=== PATIENT | female | born 1960 | race American Indian/Alaskan Native ===

== ENCOUNTER 2017-09-18 21:02 | Observation (INO) | payer BC ==
[2017-09-18] MEDS ORDERED: ASPIRIN PO ONE (23:40)
[2017-09-18 23:57] LABS: Basophils % (Auto) 0.1 % (0.0-1.8); Hematocrit 38.5 % (30.3-42.9); Hemoglobin 12.9 gm/dl (10.1-14.3); Lymphocytes # (Auto) 0.7 K/mm3 (1.2-5.4); Lymphocytes % (Auto) 5.1 % (13.4-35.0); Mean Corpuscular HGB Conc 33 % (30-34); Mean Corpuscular Hemoglobin 28 pg (28-32); Mean Corpuscular Volume 83 fl (79-97); Monocytes # (Auto) 0.8 K/mm3 (0.0-0.8); Monocytes % (Auto) 6.1 % (0.0-7.3); Platelet Count 263 K/mm3 (140-440); Red Blood Count 4.66 M/mm3 (3.65-5.03); Red Cell Distribution Width 14.3 % (13.2-15.2)
[2017-09-19 00:24] LABS: BUN/Creatinine Ratio 18; Blood Urea Nitrogen 11 mg/dL (7-17); Calcium 9.1 mg/dL (8.4-10.2); Hemolysis Index 11
--- NOTE | 2017-09-19 07:21 | XRay Report ---
FINAL REPORT EXAM: XR CHEST ROUTINE 2V HISTORY: chest pain TECHNIQUE: PA and lateral views of the chest were submitted. FINDINGS: The lungs are clear. The heart size is normal. Pleural fluid is not seen. The lungs are not congested. The skeletal structures are unremarkable. IMPRESSION: Within normal limits.
[2017-09-19] MEDS ORDERED: ZOFRAN IV ONE (11:44)
[2017-09-19] MEDS ORDERED: NACL 0.9% 1000 ML 1,000 ML IV ONE ×2 (11:44→17:27)
[2017-09-19] MEDS ORDERED: MORPHINE IV ONE (11:44)
--- NOTE | 2017-09-19 11:49 | Emergency Department Report ---
ED Abdominal Pain HPI - General Chief Complaint: Chest Pain Stated Complaint: CHEST PAIN,ABDOMINAL PAIN Time Seen by Provider: 09/19/17 11:37 Source: patient Mode of arrival: Ambulatory Limitations: No Limitations - History of Present Illness Initial Comments: Patient is 56 years old female with no significant past medical history. Patient presented to the ER with epigastric abdominal pain since last night associated with nausea vomiting and watery diarrhea. Patient denied any fever. Patient stated that she ate in a restaurant on Monday and she thinks that might be the reason for having the symptoms. Patient denied any chest pain, shortness of breath or cough. MD Complaint: abdominal pain -: Last night Location: epigastric Radiation: RUQ, suprapubic Migration to: no migration Severity scale (0 -10): 5 Quality: cramping, sharp Associated Symptoms: nausea, vomiting, diarrhea - Related Data Allergies Allergy/AdvReac Type Severity Reaction Status Date / Time No Known Allergies Allergy Verified 09/19/17 11:39 ED Review of Systems ROS: Stated complaint: CHEST PAIN,ABDOMINAL PAIN Other details as noted in HPI Comment: All other systems reviewed and negative Constitutional: denies: chills, fever Respiratory: denies: cough, orthopnea, shortness of breath, SOB with exertion, SOB at rest Cardiovascular: palpitations. denies: chest pain, dyspnea on exertion, orthopnea Gastrointestinal: abdominal pain, nausea, vomiting, diarrhea. denies: constipation, hematemesis, melena, hematochezia Genitourinary: denies: dysuria, frequency, hematuria Neurological: denies: headache, weakness, numbness, paresthesias ED Past Medical Hx - Past Medical History Previous Medical History?: Yes Hx Hypertension: Yes Additional medical history: melanoma removed R upper chest, 2013 - Surgical History Past Surgical History?: No Additional Surgical History: hysterectomy - Social History Smoking Status: Never Smoker Substance Use Type: Alcohol ED Physical Exam - General Limitations: No Limitations General appearance: alert, in no apparent distress - Head Head exam: Present: atraumatic, normocephalic - ENT ENT exam: Present: normal exam, normal orophraynx, mucous membranes dry - Neck Neck exam: Present: normal inspection, full ROM. Absent: tenderness, meningismus, lymphadenopathy, thyromegaly - Respiratory Respiratory exam: Present: normal lung sounds bilaterally. Absent: respiratory distress, wheezes, rales, rhonchi, stridor, chest wall tenderness, accessory muscle use, decreased breath sounds, prolonged expiratory - Cardiovascular Cardiovascular Exam: Present: tachycardia - GI/Abdominal GI/Abdominal exam: Present: soft, tenderness (epigastric), normal bowel sounds. Absent: distended, guarding, rebound, rigid, mass, bruit, pulsatile mass, hernia - Extremities Exam Extremities exam: Present: normal inspection, full ROM, normal capillary refill. Absent: tenderness, pedal edema, joint swelling, calf tenderness - Back Exam Back exam: Present: normal inspection. Absent: full ROM, tenderness, CVA tenderness (R), CVA tenderness (L), muscle spasm, paraspinal tenderness, vertebral tenderness - Neurological Exam Neurological exam: Present: alert, oriented X3, CN II-XII intact, normal gait - Skin Skin exam: Present: warm, intact, normal color ED Course Vital Signs 09/18/17 09/19/17 09/19/17 23:36 11:36 11:41 Temperature 97.8 F Pulse Rate 114 H 127 H 127 H Respiratory 18 25 H 32 H Rate Blood Pressure 166/105 Blood Pressure 147/87 [Left] O2 Sat by Pulse 100 100 Oximetry 09/19/17 09/19/17 09/19/17 12:00 13:30 14:00 Temperature Pulse Rate 107 H 116 H 110 H Respiratory 21 14 22 Rate Blood Pressure 139/83 147/87 132/87 Blood Pressure [Left] O2 Sat by Pulse 96 98 99 Oximetry 09/19/17 15:00 Temperature Pulse Rate 110 H Respiratory 19 Rate Blood Pressure 140/81 Blood Pressure [Left] O2 Sat by Pulse 97 Oximetry - Reevaluation(s) Reevaluation #1: 09/19/17 16:[address] Rivers, I informed her about the patient, she stated that she is coming to see the patient in the ER. ED Medical Decision Making - Lab Data Result diagrams: 09/18/17 23:45 09/18/17 23:45 Critical care attestation.: If time is entered above; I have spent that time in minutes in the direct care of this critically ill patient, excluding procedure time. ED Disposition Clinical Impression: Abdominal pain, Acute cholecystitis Disposition: OP ADMIT IP TO THIS HOSP Is pt being admited?: Yes Condition: Stable Referrals: PRIMARY CARE, [Primary Care Provider] - 3-5 Days
--- NOTE | 2017-09-19 12:34 | Cat Scan Report ---
CT ABDOMEN PELVIS WITH CONTRAST: HISTORY: abdominal pain. COMPARISON: none. TECHNIQUE: Helical CT in 1.25mm intervals following IV contrast. Sagittal and coronal reconstructions. FINDINGS: Lung bases: Normal. Liver: Normal. Biliary system: The gallbladder is dilated with diffuse wall thickening and moderate pericholecystic fluid. No obvious calcified gallstones on CT. The common bile duct and intrahepatic biliary ducts are within normal limits. Pancreas: Normal. Spleen: Normal. Kidneys/ureters/bladder: Normal. Adrenal glands: Normal. Aorta: Normal. Intestines: Normal. Appendix: Normal. Pelvic viscera: Hysterectomy changes are suspected. Adenopathy: None. Musculoskeletal: Normal. IMPRESSION: The gallbladder is dilated and inflamed concerning for acute cholecystitis. Please correlate with the clinical presentation of the patient and laboratory values.
[2017-09-19] MEDS: ZOSYN/NS 3.375GM/50ML 3.375 GM/50 ML BAG IV SCH (13:58)
--- NOTE | 2017-09-19 14:36 | Ultrasound Report ---
ULTRASOUND ABDOMEN LIMITED: TECHNIQUE: Transabdominal ultrasound with color Doppler interrogation. HISTORY: right upper quadrant abdominal pain. COMPARISON: none. FINDINGS: LIVER: The. BILIARY SYSTEM: The gallbladder is mildly distended with numerous gallstones and moderate sludge. Gallbladder wall thickness is slightly increased measuring 4 mm. Small pericholecystic fluid is noted on ultrasound and CT. The CBD measures 5 mm. PANCREAS: Normal. RIGHT KIDNEY: Slightly echogenic right kidney is consistent with mild medical renal disease. No focal renal lesion or hydronephrosis. PROXIMAL AORTA: Normal. ASCITES: Small ascites in Morison's pouch. IMPRESSION: Cholelithiasis. The gallbladder appears mildly dilated with wall thickening and surrounding fluid. Correlate for acute cholecystitis. HIDA scan could be obtained if needed.
[2017-09-19 17:26] LABS: Albumin 3.7 g/dL (3.9-5); Bilirubin,Direct 0.4 mg/dL (0-0.2)
[2017-09-19] MEDS ORDERED: MORPHINE IV PRN ×4 (17:49→23:03)
[2017-09-19] MEDS ORDERED: ZOFRAN IV PRN (17:49)
[2017-09-19] MEDS ORDERED: NARCAN 0.4 MG/1 ML IV PRN (17:49)
[2017-09-19] MEDS ORDERED: SODIUM CHLORIDE FLUSH SYRINGE 10 ML IV PRN (17:49)
[2017-09-19] MEDS ORDERED: NACL 0.9% 1000 ML 1,000 ML IV SCH (18:00)
--- NOTE | 2017-09-19 18:04 | History and Physical Report ---
History of Present Illness Date of examination: 09/19/17 Date of admission: 09/19/17 17:24 Chief complaint: abd pain History of present illness: 56 yo F with hx of HTN who presented to the ER with c/o 2 days of epigastric pain. The pain felt like indigestion but now is sharp. Pain radiates from the epigastrium to the right upper quadrant. The pain is constant and there are no alleviating factors. The patient states that she ate at a restaurant 2 days ago and early the next day started to experience this pain. She also had associated nonbilious, nonbloody emesis and continues to have nausea and poor appetite. She has not eaten since. She is also been having loose stools for the last day which is now resolved. She has never had pain like this in the past. She denies fevers, chills, chest pain, shortness of breath. Past History Past Medical History: hypertension Past Surgical History: Other (hysterectomy, melanoma excision of right upper chest) Social history: denies: smoking, alcohol abuse Family history: no significant family history Medications and Allergies Allergies Allergy/AdvReac Type Severity Reaction Status Date / Time No Known Allergies Allergy Verified 09/19/17 11:39 Home Medications Medication Instructions Recorded Confirmed Last Taken Type Acetaminophen [Tylenol Extra 1,000 mg PO QDAY 09/19/17 09/19/17 Unknown History Strength] Active Meds: Active Medications Acetaminophen (Tylenol) 650 mg PO Q4H PRN PRN Reason: Pain MILD(1-3)/Fever >100.5/NICHOLAS Heparin Sodium (Porcine) (Heparin) 5,000 unit SUB-Q Q8HR ANNEMARIE Piperacillin Sod/Tazobactam Sod (Zosyn/Ns 3.375gm/50ml) 3.375 gm in 50 mls @ 100 mls/hr IV Q6HR ANNEMARIE Last Admin: 09/19/17 13:58 Dose: 100 mls/hr Sodium Chloride (Nacl 0.9% 1000 Ml) 1,000 mls @ 125 mls/hr IV ONCE ONE Stop: 09/20/17 01:26 Sodium Chloride (Nacl 0.9% 1000 Ml) 1,000 mls @ 125 mls/hr IV DIRECT ANNEMARIE Morphine Sulfate (Morphine) 2 mg IV Q4H PRN PRN Reason: Pain , MODERATE 4-6 Naloxone HCl (Narcan 0.4 Mg/1 Ml) 0.1 mg IV Q2MIN PRN PRN Reason: Res Rate </= 8 or 02 SAT < 92% Ondansetron HCl (Zofran) 4 mg IV Q8H PRN PRN Reason: Nausea And Vomiting Sodium Chloride (Sodium Chloride Flush Syringe 10 Ml) 10 ml IV PRN PRN PRN Reason: LINE FLUSH Review of Systems All systems: negative (10 point review of systems was performed and negative except for that listed in HPI) Exam Vital Signs Temp Pulse Resp BP Pulse Ox 97.8 F 114 H 18 166/105 100 09/18/17 23:36 09/18/17 23:36 09/18/17 23:36 09/18/17 23:36 09/18/17 23:36 Narrative exam: Gen.: Awake, alert, oriented 3. No apparent distress ENT: No scleral icterus or conjunctival pallor CV: S1, S2 present respiratory: No audible wheezes Abdomen: Soft, nondistended, right upper quadrant and epigastric tenderness to palpation. Positive McBurney sign. Extremities: No clubbing, cyanosis, edema Results - Labs 09/18/17 23:45 09/18/17 23:45 Abnormal lab results 09/18/17 09/18/17 09/19/17 Range/Units 23:45 23:45 16:28 WBC 12.7 H (4.5-11.0) K/mm3 Lymph % (Auto) 5.1 L (13.4-35.0) % Lymph # 0.7 L (1.2-5.4) K/mm3 Seg Neutrophils % 88.7 H (40.0-70.0) % Seg Neutrophils # 11.3 H (1.8-7.7) K/mm3 Chloride 96.3 L (98-107) mmol/L Creatinine 0.6 L (0.7-1.2) mg/dL Glucose 164 H (65-100) mg/dL Total Bilirubin 1.50 H (0.1-1.2) mg/dL Direct Bilirubin 0.4 H (0-0.2) mg/dL Albumin 3.7 L (3.9-5) g/dL Diabetes panel 09/18/17 09/19/17 Range/Units 23:45 16:28 Sodium 138 (137-145) mmol/L Potassium 3.7 (3.6-5.0) mmol/L Chloride 96.3 L (98-107) mmol/L Carbon Dioxide 28 (22-30) mmol/L BUN 11 (7-17) mg/dL Creatinine 0.6 L (0.7-1.2) mg/dL Glucose 164 H (65-100) mg/dL Calcium 9.1 (8.4-10.2) mg/dL AST 35 (5-40) units/L ALT 22 (7-56) units/L Alkaline Phosphatase 72 (35-129) units/L Total Protein 7.3 (6.3-8.2) g/dL Albumin 3.7 L (3.9-5) g/dL Calcium panel 09/18/17 09/19/17 Range/Units 23:45 16:28 Calcium 9.1 (8.4-10.2) mg/dL Albumin 3.7 L (3.9-5) g/dL Pituitary panel 09/18/17 Range/Units 23:45 Sodium 138 (137-145) mmol/L Potassium 3.7 (3.6-5.0) mmol/L Chloride 96.3 L (98-107) mmol/L Carbon Dioxide 28 (22-30) mmol/L BUN 11 (7-17) mg/dL Creatinine 0.6 L (0.7-1.2) mg/dL Glucose 164 H (65-100) mg/dL Calcium 9.1 (8.4-10.2) mg/dL Adrenal panel 09/18/17 09/19/17 Range/Units 23:45 16:28 Sodium 138 (137-145) mmol/L Potassium 3.7 (3.6-5.0) mmol/L Chloride 96.3 L (98-107) mmol/L Carbon Dioxide 28 (22-30) mmol/L BUN 11 (7-17) mg/dL Creatinine 0.6 L (0.7-1.2) mg/dL Glucose 164 H (65-100) mg/dL Calcium 9.1 (8.4-10.2) mg/dL Total Bilirubin 1.50 H (0.1-1.2) mg/dL AST 35 (5-40) units/L ALT 22 (7-56) units/L Alkaline Phosphatase 72 (35-129) units/L Total Protein 7.3 (6.3-8.2) g/dL Albumin 3.7 L (3.9-5) g/dL - Imaging CT scan - abdomen: report reviewed, image reviewed CT scan - pelvis: report reviewed, image reviewed US - abdomen: report reviewed, image reviewed Assessment and Plan 56-year-old female with acute cholecystitis Plan: Admit to med/surg floor 1. NPO 2. IVF 3. IVF abx - on zosyn 4. DVT ppx 5. pain and nausea control PRN 6. need OR for laparoscopic cholecystectomy, possible open - all risks, alternatives, and benefits of surgery discussed with patient. She understands and agrees to proceed.
[2017-09-19] MEDS ORDERED: DIPRIVAN 10 MG/ML IV ONE (18:29)
[2017-09-19] MEDS ORDERED: DILAUDID ONE (18:29)
[2017-09-19] MEDS ORDERED: ZEMURON IV ONE ×2 (18:30→21:08)
[2017-09-19] MEDS ORDERED: QUELICIN ONE (18:30)
[2017-09-19] MEDS ORDERED: MARCAINE 0.5% INFILTRATI ONE ×2 (19:05→19:37)
--- NOTE | 2017-09-19 19:05 | Anesthesia Consultation ---
Anesthesia Consult and Med Hx Date of service: 09/19/17 - Airway Anesthetic Teeth Evaluation: Good ROM Head & Neck: Adequate Mental/Hyoid Distance: Adequate Mallampati Class: Class I Intubation Access Assessment: Good - Pulmonary Exam CTA: Yes - Cardiac Exam Cardiac Exam: RRR - Pre-Operative Health Status ASA Pre-Surgery Classification: ASA1, Emergency Proposed Anesthetic Plan: General - Cardiovascular System Hx Hypertension: No
[2017-09-19] MEDS ORDERED: XYLOCAINE 1% MPF 5 mL ONE (19:06)
--- NOTE | 2017-09-19 19:06 | Anesthesia Day of Surgery ---
Anesthesia Day of Surgery - Day of Surgery Patient Examined: Yes Patient H&P Reviewed: Yes Patient is NPO: Yes Beta Blockers: No
[2017-09-19] MEDS ORDERED: XYLOCAINE MPF 2% ONE (19:18)
[2017-09-19] MEDS ORDERED: NEO SYNEPHRINE/NS Syringe(OR USE) IV ONE (19:42)
[2017-09-19] MEDS ORDERED: NACL 0.9% 1000 ML 1,000 ML ONE ×5 (19:50→23:59)
[2017-09-19] MEDS ORDERED: NEOSTIGMINE ONE (20:00)
[2017-09-19] MEDS ORDERED: ROBINUL ONE (22:01)
[2017-09-19] MEDS ORDERED: ZOFRAN ONE (22:13)
[2017-09-19] MEDS: HEPARIN SUB-Q SCH (22:20)
--- NOTE | 2017-09-19 22:46 | Operative Report ---
Operative Report Operative Report: Date of operation: 09/19/2017 Preoperative diagnosis: Acute calculus cholecystitis postOperative diagnoses: Acute on chronic calculus cholecystitis Procedure performed: Laparoscopic cholecystectomy, lysis of adhesions Surgeon: Mauro Rivers DO Fence Erector Supervisor: Dr. Shah Anesthesia: Gen. endotracheal anesthesia Findings: 1. Very distended gallbladder with chronically thickened wall 2. hydrops of the gallbladder 3. thick adhesions from the omentum, colon, small bowel to the gallbladder Specimen: Gallbladder Estimated blood loss: 300cc Drains: 19F Bryon drain Complications: None Disposition: Stable to PACU HPI an indication: 56-year-old female who presented to the hospital with complaints of severe epigastric abdominal pain radiating to right upper quadrant. She was found to have acute cholecystitis on imaging which included CT scan and right upper quadrant ultrasound. Her white blood cell count was elevated. All risks and benefits as well as alternatives to cholecystectomy were discussed with the patient. The patient was agreeable to proceeding with laparoscopic,possible open, cholecystectomy. All questions were answered and consent signed. Procedure in detail: The patient was identified in the preoperative area and taken back to the operating room, placed on the operating room table in supine position. After anesthesia was induced, the abdomen was prepped and draped in usual sterile fashion and timeout was performed. Local anesthetic was infiltrated into all of the skin incision sites. Using an 11 blade a supraumbilical incision was made and through this a Veress needle was used to insufflate the abdomen. The position of the veress needle was confirmed with the saline drop test and the abdomen was then insufflated to 15 mmHg. The veress needle was then removed and a 5 mm trocar placed using Optiview trocar. The abdomen was then inspected and there was no underlying injury to any of the abdominal contents. An additional 12 mm subxyphoid port, and 2, 5mm RUQ ports were then placed under direct visualization. The patient was then placed into reverse Trendelberg and tilted to the left. The gallbladder was obscured by thick adhesions from the omentum and bowel to the gallbladder. These were taken down with great care using blunt dissection until the gallbladder was visualized. The gallbladder was very distended with a thickened gallbladder wall and was unable to be grasped. Using a laparoscopic needle, the gallbladder was decompressed. There was return of clear bile with a mixture of pus, a total of 160cc were aspirated. Once the gallbladder was adequately decompressed, it was grasped and lifted cephalad. The entire gallbladder was obscured by the previously mentioned adhesions which were slowly taken down bluntly until the neck of the gallbladder could be identified. This lysis of adhesions took greater than 1 hour until the neck of the gallbladder could safely be identified and dissected. In addition to this, the gallbladder was partially intrahepatic. The cystic duct and artery were then carefully dissected and the critical view obtained, and the cystic duct and artery were the only two structures seen entering the gallbladder. Three clips were then placed on the proximal aspect of the cystic duct and one clip distally and it was transected between the clips. The cystic artery was ligated using the Harmonic scalpel. The gallbladder was taken off the liver bed using Harmonic scalpel. The liver bed was very friable and we did encounter oozing of blood from the majority of the gallbladder fossa. This was adequately controlled with surgicel and electrocautery. The gallbladder was placed into a Endo Catch bag and removed from the abdomen via the 12mm port. The gallbladder fossa was then inspected and there was no identifiable bleeding or bile leakage. The patient was then placed into neutral position and Morison's pouch was irrigated and the irrigant returned clear. 2 pieces of Surgicel were left in the gallbladder fossa and once hemostasis was ensured, Ernesto powder was sprayed onto the gallbladder fossa. The clips on the cystic duct were visualized and intact. A 19 Wallisian Bryon drain was placed into the gallbladder fossa and brought out via the right upper quadrant lateral port. This was sutured into place using 2- 0 nylon drain stitch. The 12 mm port fascia was closed with a running 0 Vicryl suture. The remaining ports were removed under direct visualization. The subxiphoid and umbilical skin incisions were closed with 4-0 Monocryl subcuticular stitches and skin glue. The right upper quadrant medial port was closed using 3 simple interrupted 4-0 Monocryl stitches. 4 x 4 gauze was placed around the drain and over the right upper quadrant medial port, secured with Tegaderm. At the end case all sponge, instrument, sharp counts were correct 2. The patient was awoken from anesthesia, extubated, taken to PACU in stable condition.
[2017-09-19] MEDS ORDERED: MORPHINE ONE (22:49)
--- NOTE | 2017-09-19 23:07 | Post Anesthesia Evaluation ---
- Post Anesthesia Evaluation Patient Participated: Yes Airway Patent: Yes Stable Respiratory Function: Yes Nausea/Vomiting: No Temp > 96.8F: Yes Pain Manageable: Yes Adequeate Hydration: Yes Anesthesia Complications: No
[2017-09-19] MEDS ORDERED: TORADOL ONE (23:09)
[2017-09-19] MEDS ORDERED: TORADOL IV PRN (23:12)
[2017-09-20] MEDS: ZOSYN/NS 3.375GM/50ML 3.375 GM/50 ML BAG IV SCH ×3 (04:36→08:11)
[2017-09-20 06:46] LABS: Mean Corpuscular HGB Conc 32 % (30-34); Mean Corpuscular Hemoglobin 27 pg (28-32); Mean Corpuscular Volume 84 fl (79-97); Platelet Count 188 K/mm3 (140-440); Red Blood Count 3.67 M/mm3 (3.65-5.03); Red Cell Distribution Width 14.2 % (13.2-15.2)
[2017-09-20 06:59] LABS: BUN/Creatinine Ratio 16; Blood Urea Nitrogen 11 mg/dL (7-17); Calcium 7.3 mg/dL (8.4-10.2); Hemolysis Index 1
[2017-09-20] MEDS: MORPHINE IV PRN (07:02)
[2017-09-20] MEDS: HEPARIN SUB-Q SCH ×3 (07:03→22:10)
[2017-09-20] MEDS ORDERED: ZOSYN/NS 3.375GM/50ML 3.375 GM/50 ML BAG IV SCH (09:00)
[2017-09-20] MEDS ORDERED: D5W/0.45% NACL/KCL 20 MEQ 20 MEQ/1,000 ML BAG IV SCH (09:00)
[2017-09-20] MEDS ORDERED: ULTRAM PO PRN (09:58)
--- NOTE | 2017-09-20 10:00 | Progress Note ---
Assessment and Plan 56 yo F with acute on chronic cholecystitis s/p laparoscopic cholecystectomy POD 1 1. adv to soft diet 2. change to maintenance IVF and dc when pt tolerating reg diet 3. dc abx 4. ANUSHKA drain to bulb suction 5. DVT ppx 6. OOB/ambulate 7. encouraged IS 8. PRN PO pain meds 9. replace K 10. DC planning in am tomorrow Subjective Date of service: 09/20/17 Narrative: Pt seen and examined. No complaints. Pain is controlled. No n/v, f/c. No SOB, CP. Tolerating clear liquids. Ambulating to and from bathroom. Objective Vital Signs - 12hr 09/19/17 09/19/17 09/19/17 22:26 22:30 22:35 Temperature 98.5 F Pulse Rate 112 H 110 H 104 H Respiratory 16 17 18 Rate Blood Pressure 120/73 118/68 112/69 Blood Pressure [Left] O2 Sat by Pulse 100 100 100 Oximetry 09/19/17 09/19/17 09/19/17 22:40 22:43 22:45 Temperature Pulse Rate 113 H 107 H Respiratory 14 16 16 Rate Blood Pressure 118/74 121/74 Blood Pressure [Left] O2 Sat by Pulse 100 100 Oximetry 09/19/17 09/19/17 09/19/17 23:00 23:05 23:08 Temperature Pulse Rate 105 H Respiratory 12 14 14 Rate Blood Pressure 109/68 Blood Pressure [Left] O2 Sat by Pulse 100 Oximetry 09/19/17 09/19/17 09/19/17 23:15 23:30 23:38 Temperature Pulse Rate 96 H 102 H Respiratory 12 12 12 Rate Blood Pressure 100/60 91/56 Blood Pressure [Left] O2 Sat by Pulse 97 97 Oximetry 09/19/17 09/20/17 09/20/17 23:45 00:00 01:39 Temperature 97.7 F 97.8 F Pulse Rate 92 H 92 H 90 Respiratory 10 L 12 20 Rate Blood Pressure 101/60 114/85 Blood Pressure 93/60 [Left] O2 Sat by Pulse 99 98 Oximetry 09/20/17 09/20/17 04:54 08:03 Temperature 98.3 F 98.6 F Pulse Rate 83 88 Respiratory 14 18 Rate Blood Pressure 83/55 100/67 Blood Pressure [Left] O2 Sat by Pulse 100 100 Oximetry - General physical appearance Narrative Exam: Gen: AAOx3. NAD ENT: no scleral icterus or conjunctival pallor CV: s1, S2+ Resp: even and unlabored Abd: soft, NT, ND. incisions c/d/i. ANUSHKA drain sanguenous. Ext: no c/c/e ANUSHKA: 55 cc/12hr - Labs 09/20/17 05:59 09/20/17 05:59 Diabetes panel 09/19/17 09/20/17 Range/Units 16:28 05:59 Sodium 140 (137-145) mmol/L Potassium 3.4 L (3.6-5.0) mmol/L Chloride 107.0 (98-107) mmol/L Carbon Dioxide 25 (22-30) mmol/L BUN 11 (7-17) mg/dL Creatinine 0.7 (0.7-1.2) mg/dL Glucose 112 H (65-100) mg/dL Calcium 7.3 L D (8.4-10.2) mg/dL AST 35 (5-40) units/L ALT 22 (7-56) units/L Alkaline Phosphatase 72 (35-129) units/L Total Protein 7.3 (6.3-8.2) g/dL Albumin 3.7 L (3.9-5) g/dL Calcium panel 09/19/17 09/20/17 Range/Units 16:28 05:59 Calcium 7.3 L D (8.4-10.2) mg/dL Albumin 3.7 L (3.9-5) g/dL Pituitary panel 09/20/17 Range/Units 05:59 Sodium 140 (137-145) mmol/L Potassium 3.4 L (3.6-5.0) mmol/L Chloride 107.0 (98-107) mmol/L Carbon Dioxide 25 (22-30) mmol/L BUN 11 (7-17) mg/dL Creatinine 0.7 (0.7-1.2) mg/dL Glucose 112 H (65-100) mg/dL Calcium 7.3 L D (8.4-10.2) mg/dL Adrenal panel 09/19/17 09/20/17 Range/Units 16:28 05:59 Sodium 140 (137-145) mmol/L Potassium 3.4 L (3.6-5.0) mmol/L Chloride 107.0 (98-107) mmol/L Carbon Dioxide 25 (22-30) mmol/L BUN 11 (7-17) mg/dL Creatinine 0.7 (0.7-1.2) mg/dL Glucose 112 H (65-100) mg/dL Calcium 7.3 L D (8.4-10.2) mg/dL Total Bilirubin 1.50 H (0.1-1.2) mg/dL AST 35 (5-40) units/L ALT 22 (7-56) units/L Alkaline Phosphatase 72 (35-129) units/L Total Protein 7.3 (6.3-8.2) g/dL Albumin 3.7 L (3.9-5) g/dL
[2017-09-20] MEDS ORDERED: K-DUR PO ONE (10:30)
[2017-09-20] MEDS: TYLENOL PO PRN ×2 (17:40→22:10)
[2017-09-21] MEDS: TYLENOL PO PRN (05:34)
[2017-09-21] MEDS: HEPARIN SUB-Q SCH ×2 (05:45→17:04)
[2017-09-21 06:08] LABS: Hematocrit 31.4 % (30.3-42.9); Hemoglobin 10.5 gm/dl (10.1-14.3); Mean Corpuscular HGB Conc 33 % (30-34); Mean Corpuscular Hemoglobin 27 pg (28-32); Mean Corpuscular Volume 82 fl (79-97); Platelet Count 185 K/mm3 (140-440); Red Blood Count 3.81 M/mm3 (3.65-5.03); Red Cell Distribution Width 14.1 % (13.2-15.2)
[2017-09-21 06:31] LABS: BUN/Creatinine Ratio 12; Blood Urea Nitrogen 7 mg/dL (7-17); Calcium 7.9 mg/dL (8.4-10.2); Hemolysis Index 3
[2017-09-21] MEDS ORDERED: K-DUR PO NR (09:00)
[2017-09-21] MEDS: MORPHINE IV PRN ×2 (10:47→10:58)
--- NOTE | 2017-09-21 11:01 | Discharge Summary ---
Providers - Providers Date of Admission: 09/19/17 17:24 Date of discharge: 09/21/17 Attending physician: YARON TERRY DO Primary care physician: EDUCATION REPORTER Hospitalization Reason for admission: acute cholecystitis Condition: Good Pertinent studies: Ct A/P RUQ u/s Procedures: Laparoscopic cholecystectomy Hospital course: 56 yo F presented to hospital with c/o 2 days of RUQ abd pain and was found to have leukocytosis and acute cholecystitis on imaging. She was taken to the OR for laparoscopic cholecystectomy. Her post operative course was uncomplicated. She was advanced to a soft diet and was tolerating. Her pain was controlled with PO pain meds and she was ambulating. She was discharged to home in stable condition. KOBY drain was removed prior to discharge. Disposition: DC-01 TO HOME OR SELFCARE Time spent for discharge: 30 minutes - Discharge Diagnoses (1) Acute cholecystitis Status: Acute Core Measure Documentation - Palliative Care Palliative Care/ Comfort Measures: Not Applicable - Core Measures Any of the following diagnoses?: none Exam - Physical Exam Narrative exam: Gen: AAOx3. NAD ENT: no scleral icterus or conjunctival pallor CV: s1, S2+ Resp: No audible wheezes Abd: soft. ND, + TTP near R KOBY site. Koby drain serous - suture cut and KOBY drain removed intact. 2x2 gauze placed over incision and covered with tegaderm Ext: No c/c/e KOBY: 110cc/24 hours serous - Constitutional Vitals: Temp Pulse Resp BP Pulse Ox 99.3 F 97 H 20 136/84 94 09/21/17 08:01 09/21/17 08:01 09/21/17 08:01 09/21/17 08:01 09/21/17 08:01 Plan Activity: other (Avoid heavy lifting for [address] if taking narcotic pain medications) Diet: low fat, advance as tolerated, other (keep hydrated) Wound: open to air (May shower, do not submerge incisions in water until healed. Pat incisions dry, do not scrub. ) Additional Instructions: Call surgeon's office if you have fevers>100.4, intractable vomiting or abdominal pain not controlled with prescription pain medications, or drainage/redness around incisions. Follow up with: PRIMARY CAREMD [Primary Care Provider] - 3-5 Days MARA,YARON, DO [Staff Physician] - 10 Days Prescriptions: Ondansetron [Zofran Odt] 4 mg PO Q6H PRN #20 tab.rapdis PRN Reason: Nausea And Vomiting oxyCODONE /ACETAMINOPHEN [Percocet 5/325] 1 tab PO Q6HR PRN #20 tablet PRN Reason: Pain
[2017-09-21] MEDS ORDERED: PERCOCET 5/325 PO PRN (14:47)
[2017-09-21] MEDS: MOTRIN PO SCH ×2 (14:55→18:50)
[2017-09-21 17:35] VITALS: BP 133/81
== END 2017-09-21 19:30 | disposition home or self-care (01) ==
LOC: ED 21:02 → 3A 09-19 17:24 → INTOOBSV 09-19 17:24
PROVIDERS: ADMIT Surgery; ATTEND Surgery
DX: K80.12 Calculus of gallbladder with acute and chronic cholecystitis without obstruction (principal); I10 Essential (primary) hypertension
CPT/HCPCS: 36415; 47562; 71046; 74177; 76705; 80048; 80074; 84484; 85025; 85027; 86850; 86900; 86901; 88304; 93005; 93010; 96365; 96372; 96375; 96376; 99285; G0378; J1170; J1644; J1885; J2270; J2370; J2405; J2543; J2704; J2710; J7030; Q9967; 96361; J0330

== ENCOUNTER 2017-10-04 12:21 | Observation (INO) | payer BC ==
[2017-10-04 14:08] LABS: Basophils % (Auto) 0.2 % (0.0-1.8); Eosinophils % (Auto) 0.3 % (0.0-4.3); Hematocrit 31.3 % (30.3-42.9); Hemoglobin 10.2 gm/dl (10.1-14.3); Lymphocytes # (Auto) 1.5 K/mm3 (1.2-5.4); Lymphocytes % (Auto) 13.6 % (13.4-35.0); Mean Corpuscular HGB Conc 33 % (30-34); Mean Corpuscular Hemoglobin 26 pg (28-32); Mean Corpuscular Volume 81 fl (79-97); Monocytes # (Auto) 0.8 K/mm3 (0.0-0.8); Monocytes % (Auto) 7.2 % (0.0-7.3); Platelet Count 726 K/mm3 (140-440); Red Blood Count 3.88 M/mm3 (3.65-5.03); Red Cell Distribution Width 14.6 % (13.2-15.2)
[2017-10-04 14:23] LABS: Alanine Aminotransferase 28 units/L (7-56); Albumin 3.3 g/dL (3.9-5); BUN/Creatinine Ratio 10; Blood Urea Nitrogen 7 mg/dL (7-17); Hemolysis Index 3
[2017-10-04] MEDS ORDERED: TYLENOL PO PRN (17:08)
[2017-10-04] MEDS ORDERED: ZOFRAN IV PRN (17:08)
[2017-10-04] MEDS ORDERED: SODIUM CHLORIDE FLUSH SYRINGE 10 ML IV PRN (17:08)
--- NOTE | 2017-10-04 17:14 | History and Physical Report ---
History of Present Illness Date of examination: 10/04/17 Date of admission: 10/04/17 17:04 Chief complaint: fever, abd pain post op History of present illness: 56 yo F s/p laparoscopic cholecystectomy on 09/19/17 who was seen in the surgery office yesterday for post op follow up. The patient was not feeling well and reported low grade fevers and was started on levaquin and flagyl. On follow up today she stated she had two fevers of 100.7 and 100.4 since the visit yesterday. She denies n/v. She was tolerating a diet and her appetite has been improving. She had incisional abdominal pain. No constipation or diarrhea. Past History Past Medical History: No medical history Past Surgical History: cholecystectomy (09/19/17) Social history: no significant social history Family history: no significant family history Medications and Allergies Allergies Allergy/AdvReac Type Severity Reaction Status Date / Time No Known Allergies Allergy Verified 09/19/17 11:39 Home Medications Medication Instructions Recorded Confirmed Last Taken Type Ondansetron [Zofran Odt] 4 mg PO Q6H PRN #20 tab.rapdis 09/21/17 Unknown Rx oxyCODONE /ACETAMINOPHEN [Percocet 1 tab PO Q6HR PRN #20 tablet 09/21/17 Unknown Rx 5/325] Active Meds: Active Medications Acetaminophen (Tylenol) 650 mg PO Q4H PRN PRN Reason: Pain MILD(1-3)/Fever >100.5/NICHOLAS Dextrose/Sodium Chloride (D5/0.45ns) 1,000 mls @ 75 mls/hr IV DIRECT ANNEMARIE Levofloxacin/Dextrose (Levaquin 500mg/100ml) 500 mg in 100 mls @ 100 mls/hr IV Q24HR ANNEMARIE; Protocol Metronidazole (Flagyl 500 Mg/100 Ml) 500 mg in 100 mls @ 100 mls/hr IV Q8HR ANNEMARIE Ondansetron HCl (Zofran) 4 mg IV Q8H PRN PRN Reason: Nausea And Vomiting Sodium Chloride (Sodium Chloride Flush Syringe 10 Ml) 10 ml IV BID ANNEMARIE Sodium Chloride (Sodium Chloride Flush Syringe 10 Ml) 10 ml IV PRN PRN PRN Reason: LINE FLUSH Review of Systems All systems: negative (10 point ROS performed and negative except for above) Exam Narrative exam: Gen: AAOx3. NAD ENT: no scleral icterus or conjunctival pallor CV: s1, S2+ Resp: No audible wheezes Abd: soft, ND, mild RUQ and incisional TTP Ext: no c/c/e Results - Labs 10/04/17 14:04 10/04/17 14:04 Abnormal lab results 10/04/17 10/04/17 Range/Units 14:04 14:04 MCH 26 L (28-32) pg Plt Count 726 H (140-440) K/mm3 Seg Neutrophils % 78.7 H (40.0-70.0) % Seg Neutrophils # 8.5 H (1.8-7.7) K/mm3 Sodium 135 L (137-145) mmol/L Chloride 96.5 L (98-107) mmol/L Glucose 107 H (65-100) mg/dL Alkaline Phosphatase 213 H (35-129) units/L Albumin 3.3 L (3.9-5) g/dL Diabetes panel 10/04/17 Range/Units 14:04 Sodium 135 L (137-145) mmol/L Potassium 4.0 (3.6-5.0) mmol/L Chloride 96.5 L (98-107) mmol/L Carbon Dioxide 26 (22-30) mmol/L BUN 7 (7-17) mg/dL Creatinine 0.7 (0.7-1.2) mg/dL Glucose 107 H (65-100) mg/dL Calcium 9.0 (8.4-10.2) mg/dL AST 20 (5-40) units/L ALT 28 (7-56) units/L Alkaline Phosphatase 213 H (35-129) units/L Total Protein 8.1 (6.3-8.2) g/dL Albumin 3.3 L (3.9-5) g/dL Calcium panel 10/04/17 Range/Units 14:04 Calcium 9.0 (8.4-10.2) mg/dL Albumin 3.3 L (3.9-5) g/dL Pituitary panel 10/04/17 Range/Units 14:04 Sodium 135 L (137-145) mmol/L Potassium 4.0 (3.6-5.0) mmol/L Chloride 96.5 L (98-107) mmol/L Carbon Dioxide 26 (22-30) mmol/L BUN 7 (7-17) mg/dL Creatinine 0.7 (0.7-1.2) mg/dL Glucose 107 H (65-100) mg/dL Calcium 9.0 (8.4-10.2) mg/dL Adrenal panel 10/04/17 Range/Units 14:04 Sodium 135 L (137-145) mmol/L Potassium 4.0 (3.6-5.0) mmol/L Chloride 96.5 L (98-107) mmol/L Carbon Dioxide 26 (22-30) mmol/L BUN 7 (7-17) mg/dL Creatinine 0.7 (0.7-1.2) mg/dL Glucose 107 H (65-100) mg/dL Calcium 9.0 (8.4-10.2) mg/dL Total Bilirubin 0.40 (0.1-1.2) mg/dL AST 20 (5-40) units/L ALT 28 (7-56) units/L Alkaline Phosphatase 213 H (35-129) units/L Total Protein 8.1 (6.3-8.2) g/dL Albumin 3.3 L (3.9-5) g/dL - Imaging CT scan - abdomen: report reviewed, image reviewed CT scan - pelvis: report reviewed, image reviewed (reveiwed with radiologist. Fluid collection in gallbladder fossa and possible adnexal cyst vs fluid collection) Assessment and Plan 56 yo F with 1. post operative fevers 2. intraabdominal fluid collection s/p Lap misael 09/19/17 Plan: 1. direct admit - observation to surgical floor 2. IVF 3. Reg diet, NPO p MN 4. Tylenol PRN 5. IV abx - levaquin/flagyl 6. IR consult for intraabdominal collection I discussed the results of CT with patient and notified her of plan. All questions answered and she understands. Patient signed out to Dr. Goodman.
--- NOTE | 2017-10-04 17:43 | Cat Scan Report ---
FINAL REPORT EXAM: CT ABDOMEN PELVIS W CON HISTORY: EPIGASTRIC PAIN TECHNIQUE: CT examination of the ABDOMEN after IV contrast CT examination of the PELVIS after IV contrast PRIORS: Two-view chest 09/19/2017 FINDINGS: Linear scar versus atelectasis in both lung bases, slightly more prominent on the left right. Slight patchy opacity in the posterior right lung base may be additional atelectasis or small focus of pneumonia. Nonspecific fluid collection with air bubbles is present in the gallbladder fossa and may extend into the liver adjacent to the gallbladder fossa. Approximate transverse dimension is 5.9 x 7.4 cm. Approximate sagittal dimension 5.5 cm. Medially displaced surgical clips suggest prior cholecystectomy. Considerations include hematoma, biloma, and/or abscess. Normal caliber common bile duct. Trace free fluid in the right pericolic gutter. Normal-appearing adrenals, pancreas, and spleen. Normal caliber abdominal aorta and IVC. A nonspecific, smoothly marginated, low density, simple appearing left renal lesion is statistically most likely a cyst. Otherwise normal-appearing kidneys and visible ureteral segments. Intact anterior abdominal wall. Slight fat stranding in the subcutaneous tissues of the right abdomen and periumbilical region may be related to recent procedure. No retroperitoneal adenopathy. No mesenteric mass. Normal-appearing stomach and duodenum. No small bowel distention in the abdomen and pelvis. No pelvic free fluid. Nonspecific small region of unopacified urine is noted in the right urinary bladder this may be artifact of incomplete mixture. A small wall adherent polyp is not excludable. Uterus not visible. Normal-appearing right adnexa. Nonspecific fluid collection with rim enhancement is noted in the left adnexa measuring 3.4 x 4.2 cm. This may be an ovarian cyst. Other etiology fluid collection not excluded. Minimal sigmoid diverticulosis without evidence of acute diverticulitis. No gross ascites, free air, or colon distention. Normal-appearing cecum, terminal ileum, and appendix. IMPRESSION: Rim enhancing fluid collection with air bubbles in the region of the gallbladder fossa/inferior liver may reflect gallbladder fossa abscess. Surgical clips suggest prior cholecystectomy. Differential includes hematoma, infected hematoma, biloma, and seroma. Slight linear and patchy opacity in the posterior right lung base may be atelectasis and/or small focus of pneumonia 15 mm focus of unopacified urine along the right urinary bladder wall may be artifact of incomplete mixture. Differential includes a small nodule Nonspecific rim enhancing fluid collection in left adnexa may be a hemorrhagic ovarian cyst. Other etiology fluid collection not excluded Minimal sigmoid diverticulosis
[2017-10-04] MEDS ORDERED: AMBIEN PO PRN (18:01)
--- NOTE | 2017-10-04 21:28 | Event Note ---
Date: 10/04/17 56 year old female s/p cholecystectomy with large fluid collection in the gallbladder fossa with foci of gas. Most likely represents postoperative abscess. Less likely infected biloma. TB normal. NPO after MN. Plan for percutaneous transhepatic drainage of the fluid collection. I'll order INR/PT/PTT for tomorrow given the transhepatic route.
[2017-10-04] MEDS: LEVAQUIN 500MG/100ML 500 MG/100 ML BAG IV SCH (21:35)
[2017-10-04] MEDS: D5/0.45NS 1,000 ML IV SCH (21:41)
[2017-10-04] MEDS: FLAGYL 500 MG/100 ML 500 MG/100 ML BAG IV SCH (21:41)
[2017-10-05] MEDS: FLAGYL 500 MG/100 ML 500 MG/100 ML BAG IV SCH ×4 (04:01→21:58)
[2017-10-05] MEDS: SODIUM CHLORIDE FLUSH SYRINGE 10 ML IV SCH ×3 (04:03→22:29)
[2017-10-05 05:13] LABS: Basophils % (Auto) 0.2 % (0.0-1.8); Eosinophils % (Auto) 0.1 % (0.0-4.3); Hematocrit 29.7 % (30.3-42.9); Hemoglobin 9.6 gm/dl (10.1-14.3); Lymphocytes # (Auto) 1.2 K/mm3 (1.2-5.4); Lymphocytes % (Auto) 13.7 % (13.4-35.0); Mean Corpuscular HGB Conc 32 % (30-34); Mean Corpuscular Hemoglobin 27 pg (28-32); Mean Corpuscular Volume 82 fl (79-97); Monocytes # (Auto) 0.7 K/mm3 (0.0-0.8); Monocytes % (Auto) 7.7 % (0.0-7.3); Platelet Count 673 K/mm3 (140-440); Red Cell Distribution Width 14.5 % (13.2-15.2)
[2017-10-05 05:21] LABS: BUN/Creatinine Ratio 6; Blood Urea Nitrogen 4 mg/dL (7-17); Calcium 8.7 mg/dL (8.4-10.2); Hemolysis Index 0
[2017-10-05 05:24] LABS: INR 1.14 (0.87-1.13)
[2017-10-05 05:25] LABS: Partial Thromboplastin Time 48.5 Sec. (24.2-36.6)
[2017-10-05] MEDS: LEVAQUIN 500MG/100ML 500 MG/100 ML BAG IV SCH (09:54)
--- NOTE | 2017-10-05 10:40 | Progress Note ---
Assessment and Plan - Patient Problems (1) Intra-abdominal fluid collection Current Visit: Yes Status: Acute Plan to address problem: Patient is stable. Patient scheduled for IR drainage today. Labs are okay. Once drainage is completed, should be able to discharge her today or tomorrow. This was explained to the patient. She understand she will go home with the drain. Subjective Date of service: 10/05/17 Patient Reports: Positive: no new complaints (hungry. Wants to know what time the procedure will be done.) Objective Vital Signs - 12hr 10/05/17 10/05/17 10/05/17 05:57 07:38 08:52 Temperature 99.5 F 99.5 F Pulse Rate 96 H 96 H 103 H Respiratory 17 18 Rate Blood Pressure 113/73 118/80 [Left] O2 Sat by Pulse 100 98 Oximetry - General physical appearance well developed, well nourished, no distress, no pain - Respiratory normal expansion, normal respiratory effort - Psychiatric oriented to time, oriented to person, oriented to place, speech is normal, memory intact - Labs 10/05/17 04:39 10/05/17 04:39 Diabetes panel 10/04/17 10/05/17 Range/Units 14:04 04:39 Sodium 135 L 136 L (137-145) mmol/L Potassium 4.0 3.6 (3.6-5.0) mmol/L Chloride 96.5 L 97.9 L (98-107) mmol/L Carbon Dioxide 26 26 (22-30) mmol/L BUN 7 4 L (7-17) mg/dL Creatinine 0.7 0.7 (0.7-1.2) mg/dL Glucose 107 H 115 H (65-100) mg/dL Calcium 9.0 8.7 (8.4-10.2) mg/dL AST 20 (5-40) units/L ALT 28 (7-56) units/L Alkaline Phosphatase 213 H (35-129) units/L Total Protein 8.1 (6.3-8.2) g/dL Albumin 3.3 L (3.9-5) g/dL Calcium panel 10/04/17 10/05/17 Range/Units 14:04 04:39 Calcium 9.0 8.7 (8.4-10.2) mg/dL Albumin 3.3 L (3.9-5) g/dL Pituitary panel 10/04/17 10/05/17 Range/Units 14:04 04:39 Sodium 135 L 136 L (137-145) mmol/L Potassium 4.0 3.6 (3.6-5.0) mmol/L Chloride 96.5 L 97.9 L (98-107) mmol/L Carbon Dioxide 26 26 (22-30) mmol/L BUN 7 4 L (7-17) mg/dL Creatinine 0.7 0.7 (0.7-1.2) mg/dL Glucose 107 H 115 H (65-100) mg/dL Calcium 9.0 8.7 (8.4-10.2) mg/dL Adrenal panel 10/04/17 10/05/17 Range/Units 14:04 04:39 Sodium 135 L 136 L (137-145) mmol/L Potassium 4.0 3.6 (3.6-5.0) mmol/L Chloride 96.5 L 97.9 L (98-107) mmol/L Carbon Dioxide 26 26 (22-30) mmol/L BUN 7 4 L (7-17) mg/dL Creatinine 0.7 0.7 (0.7-1.2) mg/dL Glucose 107 H 115 H (65-100) mg/dL Calcium 9.0 8.7 (8.4-10.2) mg/dL Total Bilirubin 0.40 (0.1-1.2) mg/dL AST 20 (5-40) units/L ALT 28 (7-56) units/L Alkaline Phosphatase 213 H (35-129) units/L Total Protein 8.1 (6.3-8.2) g/dL Albumin 3.3 L (3.9-5) g/dL
[2017-10-05] MEDS: D5/0.45NS 1,000 ML IV SCH (13:01)
[2017-10-05] MEDS ORDERED: VERSED IV ONE ×2 (13:25→13:35)
[2017-10-05] MEDS ORDERED: SUBLIMAZE IV ONE ×3 (13:25→15:22)
[2017-10-05] MEDS ORDERED: SUBLIMAZE ONE (13:34)
--- NOTE | 2017-10-05 15:30 | Post Operative Note ---
Date of procedure: 10/05/17 Pre-op diagnosis: Fluid collection in gallbladder fossa Post-op diagnosis: same Findings: 150 mL purulent material removed Procedure: 1. CT guided transhepatic drainage of an abdominal gallbladder fossa collection Anesthesia: local (w/ conscious sedation) Surgeon: JOSE GIPSON Estimated blood loss: minimal Specimen disposition: to lab Condition: stable Disposition: floor
--- NOTE | 2017-10-05 16:20 | Event Note ---
Date: 10/05/17 Patient returned from her IR procedure. She reports that she's having some discomfort at the drain side, but is otherwise doing okay. Fluid in the drain tubing was primarily serous. She would like to have something to eat. I explained to her that we will keep her for tonight and teach her how to take care of the drain as well as continue her antibiotics. If there are no events overnight and she is doing well in the morning, then we will see about discharging home tomorrow. She was in agreement with the plan.
[2017-10-05] MEDS: DILAUDID IV PRN ×2 (16:56→20:42)
[2017-10-06] MEDS: NORCO 5/325 PO PRN ×2 (01:02→09:27)
[2017-10-06] MEDS: D5/0.45NS 1,000 ML IV SCH (01:04)
[2017-10-06] MEDS: FLAGYL 500 MG/100 ML 500 MG/100 ML BAG IV SCH (05:15)
[2017-10-06 08:21] VITALS: BP 98/69
[2017-10-06] MEDS: LEVAQUIN 500MG/100ML 500 MG/100 ML BAG IV SCH (09:27)
[2017-10-06] MEDS: SODIUM CHLORIDE FLUSH SYRINGE 10 ML IV SCH (09:30)
--- NOTE | 2017-10-06 11:06 | Discharge Summary ---
Providers - Providers Date of Admission: 10/04/17 17:04 Date of discharge: 10/06/17 Attending physician: YARON TERRY DO 10/04/17 17:10 Consult to Interventional Radiology [CONS] Routine Consulting Provider: JOSE GIPSON Reason For Exam: post lap misael fluid collection Place consult to:: DR. GIPSON Notified:: ANSWERING SERVICE Phone number called:: [phone] Was contact made?: Yes If yes, spoke with:: ANSWRING SERVICE Time called:: 18:04 Comment:: CONSULT COMPLETED - [place] Primary care physician: MELYSSA LERMA Hospitalization Reason for admission: intra-abdominal fluid collection Condition: Stable Pertinent studies: CT abdomen and pelvis Procedures: IR percutaneous trans hepatic drainage of intra-abdominal fluid collection Hospital course: Uneventful. Patient had the drainage procedure the following day after admission. She tolerated well. There were no complications. The following day she was feeling better. She was discharged in stable condition. Disposition: TO HOME OR SELFCARE Time spent for discharge: 45min - Discharge Diagnoses (1) Intra-abdominal fluid collection Status: Acute Core Measure Documentation - Palliative Care Palliative Care/ Comfort Measures: Not Applicable - Core Measures Any of the following diagnoses?: none - VTE Discharge Requirements Deep Vein Thrombosis/Pulmonary Embolism Present on Admission: No Exam - Constitutional Vitals: Temp Pulse Resp BP Pulse Ox 98.1 F 78 18 98/69 97 10/06/17 07:48 10/06/17 07:49 10/06/17 07:48 10/06/17 07:48 10/06/17 07:49 General appearance: Present: no acute distress, well-nourished - EENT Eyes: Present: PERRL, EOM intact - Respiratory Respiratory effort: normal - Abdominal General gastrointestinal: Present: soft, tender (minimal in RUQ), non-distended , other (Drain in place. Primarily serous drainage. ) - Integumentary Integumentary: Present: dry. Absent: erythema Plan Activity: advance as tolerated, no driving until cleared by PCP Diet: regular Wound: keep clean and dry Special Instructions: other (record daily drain output. May sponge bathe. ) Follow up with: MELYSSA LERMA JR, MD [Primary Care Provider] - 7 Days YARON TERRY DO [Staff Physician] - 7 Days Prescriptions: Amoxicillin/Potassium Clav [Augmentin 500-125 Tablet] 1 each PO BID 7 Days #14 tablet HYDROcodone/APAP 5-325 [[place] 5-325 mg TAB] 1 each PO Q6H PRN #20 tablet PRN Reason: Pain, Moderate (4-6)
--- NOTE | 2017-10-13 09:52 | Operative Report ---
Operative Report Operative Report: PLEASE SEE PACS REPORT FOR OPERATIVE PROCEDURE. THIS WAS GENERATED BY [employer].
--- NOTE | 2017-10-19 12:36 | Cat Scan Report ---
EXAM: CT guided transhepatic abdomen 8 Fr drain placement CLINICAL INDICATION: Status post cholecystectomy with fluid collection in the right upper quadrant of the abdomen. DATE: 10/05/17 CLINICAL RESEARCH MANAGEMENT ASSOCIATE: JOSE GIPSON MD MEDICATIONS: Conscious sedation using Versed and fentanyl was performed under guidance of radiologic nursing. Continuous cardiopulmonary monitoring was utilized. PROCEDURE: Following an explanation of the risks, benefits and alternatives; written informed consent was obtained. The patient was brought to the CT suite and placed in the supine position on the CT table. Chiller Operator CT was performed of the abdomen. After determining the appropriate site, the skin was infiltrated with lidocaine and a finder needle was placed. Intermittent CT was performed until the desired position was identified. The 18 gauge trocar needle was inserted into the right upper quadrant fluid collection. Aspiration was performed and sent to the lab for analysis. J wire was then advanced through the needle and into the collection. The needle was exchanged for multiple dilators that were used to serially dilate over the wire. An 8 Fr APD drain was advanced over the wire and metal stiffener. The metal stiffener and wire were removed. Final CT scanning was performed. The pigtail was secured and aspirated until no more material could be aspirated. Sterile bandage was applied. The patient tolerated the procedure well. There were no immediate postprocedural complications. FINDINGS: 1. Initial CT demonstrates right upper quadrant fluid collection as noted on the diagnostic CT scan. There is a satisfactory window for CT drainage. 2. Intermittent CT demonstrates the 18 gauge needle was placed right upper quadrant fluid collection through transhepatic approach. 3. Wire is coiled in the right upper quadrant fluid collection. 4. Final CT documents placement of a 8 Fr drain in the right upper quadrant fluid collection. 5. Purulent material was aspirated through the drain and initial needle. This was sent to lab for culture. IMPRESSION: Successful CT guided right upper quadrant transhepatic 8 [place] drain placement in a fluid collection/abscess.
== END 2017-10-06 12:29 | disposition home or self-care (01) ==
LOC: LABHHL 12:21 → CT 12:21 → EDSTATUS 14:19 → 3B-SURG 17:04
PROVIDERS: ADMIT Surgery; ATTEND Surgery
DX: R19.09 Other intra-abdominal and pelvic swelling, mass and lump (principal); R50.9 Fever, unspecified; Z90.49 Acquired absence of other specified parts of digestive tract
CPT/HCPCS: 36415; 49405; 74177; 80048; 80053; 85025; 85610; 85730; 87076; 87116; 87186; 96365; 96366; 96368; 96375; 96376; C1769; G0378; J1170; J1956; J2250; Q9967; 10160; 77012; J3010